=== PATIENT | female | born 1990 | race Caucasian/White ===

== ENCOUNTER → 2021-12-03 | Outpatient (CLI) | payer BC ==
[2021-12-03 15:05] VITALS: BP 131/86; PULSE 103; TEMP 98.7; BMI 37.5
--- NOTE | 2021-12-17 15:03 | P.HPBAR ---
Bariatric H&P - History & Physicial H&P Date: 12/03/21 History & Physicial: Visit/CC: new patient Patient initial contact: Initial weight: Initial weight in pounds: Height: 5 ft 1 in Initial BMI: Last weight: Current weight: 90.265 kg Current weight in pounds: 199.00 Current BMI: 37.5 [place] body weight (based on NIH guidelines): 47.627 kg Excess body weight loss: The patient is a 31 year-old F who presents for Bariatric Assessment. Patient presents today for presurgical consultation. Patient is morbidly obese. Her BMI is 38. She is interested in sleeve gastrectomy. Past Medical History Additional Past Medical History / Comment(s): "pre-diabetes" History of Any Multi-Drug Resistant Organisms: None Reported Past Surgical History: Section Past Anesthesia/Blood Transfusion Reactions: No Reported Reaction Past Psychological History: Anxiety, Depression Smoking Status: Former smoker Past Alcohol Use History: Rare Past Drug Use History: None Reported Surgical - Exam Vital Signs Temp Pulse BP 98.7 F 103 H 131/86 12/03/21 14:58 12/03/21 14:58 12/03/21 14:58 - General well developed, well nourished, no distress - Eyes PERRL - ENT normal pinna - Neck no masses - Respiratory normal expansion - Cardiovascular Rhythm: regular - Abdomen Abdomen: soft, non tender Bariatric Assessment & Plan Plan: Morbid obesity. We went over the risks and benefits of sleeve gastrectomy. Discussed with the possibility of staple line disruption, bleeding scarring. Patient will be scheduled for EGD. She'll follow-up after this is been performed. Bariatric Checklist Checklist: Plan: Checklist: EGD: 1. Hiatal hernia: 2. H. Pylori: HgbA1c: Vitamin D: Smoking: Primary care physician referral: Dr. Odonnell Psychiatry clearance: Cardiology clearance: Sleep study: Diet journal: VTE risk score: VTE risk level: Rehab needs at discharge:
== END ==
LOC: BARWHC3 14:32
PROVIDERS: ATTEND Surgery
DX: E66.01 Morbid (severe) obesity due to excess calories (principal); Z68.37 Body mass index [BMI] 37.0-37.9, adult; Z01.818 Encounter for other preprocedural examination; F41.9 Anxiety disorder, unspecified; F32.A Depression, unspecified; Z87.891 Personal history of nicotine dependence
CPT/HCPCS: 99202

== ENCOUNTER → 2021-12-13 | Outpatient (CLI) | payer BC ==
[2021-12-13 13:40] VITALS: BP 155/78; PULSE 120; TEMP 98.2; BMI 36.4
--- NOTE | 2021-12-13 14:48 | P.HPBAR ---
Bariatric H&P - History & Physicial H&P Date: 12/13/21 History & Physicial: Visit/CC: Patient initial contact: Initial weight: Initial weight in pounds: Height: 5 ft 1 in Initial BMI: Last weight: Current weight: 87.543 kg Current weight in pounds: 193.00 Current BMI: 36.4 [place] body weight (based on NIH guidelines): 47.627 kg Excess body weight loss: The patient is a 31 year-old F who presents for Bariatric Assessment. Patient is here today to discuss surgical weight loss options. Patient is interested in sleeve gastrectomy. Patient without significant comorbidities. She does admit to intermittent episodes of reflux. Takes Pepcid [id number] 3 times per week. Usually only happens if she eats later in the day. She says she had a prior upper endoscopy showing a bezoar and a small hiatal hernia. This was back in 2017. The bezoar was not removed at the time says she does have prediabetes and recent hemoglobin A1c was 6.0. No tobacco use. Surgical history includes . Review of Systems The patient denies any acute changes in vision or hearing, no dysphagia or odynophagia, no chest pain or shortness of breath, no dysuria or hematuria, no headache, no runny nose, no rectal bleeding or melena, no unexplained weight loss Past Medical History Additional Past Medical History / Comment(s): "pre-diabetes" History of Any Multi-Drug Resistant Organisms: None Reported Past Surgical History: Section Past Anesthesia/Blood Transfusion Reactions: No Reported Reaction Past Psychological History: Anxiety, Depression Smoking Status: Former smoker Past Alcohol Use History: Rare Past Drug Use History: None Reported Surgical - Exam Vital Signs Temp Pulse BP 98.2 F 120 H 155/78 12/13/21 13:29 12/13/21 13:29 12/13/21 13:29 Physical exam: General: Well-developed, well-nourished HEENT: Normocephalic, sclerae nonicteric Abdomen: Nontender, nondistended Extremities: No edema Neuro: Alert and oriented Bariatric Assessment & Plan (1) Obesity (BMI 35.0-39.9 without comorbidity) Narrative/Plan: 31-year-old female with severe obesity. Patient is interested in sleeve gastrectomy. Will require upper endoscopy to evaluate the hiatal hernia and history of previous bezoar. Surgical options of weight loss surgery including the gastric bypass and sleeve gastrectomy reviewed in detail. Surgical risks and benefits as well as expected weight loss also discussed. Patient remains interested at this time. We'll follow up after EGD. Status: Acute Bariatric Checklist Checklist: Plan: Checklist: EGD: 1. Hiatal hernia: 2. H. Pylori: HgbA1c: Vitamin D: Smoking: Primary care physician referral: Dr. Odonnell Psychiatry clearance: Cardiology clearance: Sleep study: Diet journal: VTE risk score: VTE risk level: Rehab needs at discharge:
== END ==
LOC: BARWHC3 13:16
PROVIDERS: ATTEND Surgery
DX: E66.01 Morbid (severe) obesity due to excess calories (principal); Z68.36 Body mass index [BMI] 36.0-36.9, adult; F41.9 Anxiety disorder, unspecified; F32.A Depression, unspecified; Z87.891 Personal history of nicotine dependence
CPT/HCPCS: 99211

== ENCOUNTER 2023-11-17 18:08 | Emergency (ER) | payer BC | END 2023-11-17 22:35 | disposition home or self-care (01) | LOC: EC 18:08 | CPT/HCPCS: 99282 ==

== ENCOUNTER 2024-07-22 17:32 | Emergency (ER) | payer SELFPAY ==
[2024-07-22 17:38] VITALS: RESP 18
--- NOTE | 2024-07-22 17:55 | ED ---
Abdominal Pain HPI - General Source: patient, RN notes reviewed Mode of arrival: ambulatory Limitations: no limitations - History of Present Illness MD Complaint: abdominal pain <Isabel Castillo - Last Filed: 07/22/24 19:18> <Mojgan Pandya - Last Filed: 07/22/24 22:25> - General Chief Complaint: Abdominal Pain Stated Complaint: abd pain Time Seen by Provider: 07/22/24 17:39 - History of Present Illness Initial Comments: This is a 33-year-old female who presents to the emergency department for abdominal pain. Patient reports epigastric pain starting yesterday. She has associated nausea, vomiting, and diarrhea. Yesterday her dog also head butted her in the right rib cage, causing additional pain in this area. States that the pain feels like it did when she had pancreatitis. She had this a month ago. She initially went to [facility] but ended up leaving [place] due to lack of GI availability. She went to [facility] for further management. States that they could not determine a cause of the pancreatitis and advised that it was likely genetic. She did have one mimosa this morning, but did not finish it after realizing how much pain she was in. However, states that the pain had also started before she consumed this. (Isabel Castillo) - Related Data Home Medications Medication Instructions Recorded Confirmed Dextroamphetamine/Amphetamine 15 mg PO DAILY PRN 12/03/21 12/13/21 [Adderall 15 mg Tablet] Dextroamphetamine/Amphetamine 20 mg PO DAILY 12/03/21 12/13/21 [Adderall 20 mg Tablet] Doxepin [SINEquan] 10 mg PO HS 12/03/21 12/13/21 Glucos Sul 2Kcl/MSM/Chond/C/Mn 1 each PO DAILY 12/03/21 12/13/21 [Glucosamine Chondroitin Cap] Multivitamins, Thera [Multivitamin 1 tab PO DAILY 12/03/21 12/13/21 (formulary)] Sertraline [Zoloft] 50 mg PO DAILY 12/03/21 12/13/21 Turmeric Root Extract [Turmeric] 500 mg PO DAILY 12/03/21 12/13/21 hydrOXYzine HCL [Hydroxyzine HCl] 25 mg PO Q12HR PRN 12/03/21 12/13/21 metFORMIN HCL ER [Glucophage XR] 1,000 mg PO DAILY 12/03/21 12/13/21 Allergies Allergy/AdvReac Type Severity Reaction Status Date / Time No Known Allergies Allergy Verified 07/22/24 17:38 Review of Systems ROS Other: All systems not noted in ROS Statement are negative. <Isabel Castillo - Last Filed: 07/22/24 19:18> ROS Other: All systems not noted in ROS Statement are negative. <Mojgan Pandya - Last Filed: 07/22/24 22:25> ROS Statement: Those systems with pertinent positive or pertinent negative responses have been documented in the HPI. Past Medical History Additional Past Medical History / Comment(s): Pancreatitis. "pre-diabetes" History of Any Multi-Drug Resistant Organisms: None Reported Past Surgical History: Bariatric Surgery, Section Past Anesthesia/Blood Transfusion Reactions: No Reported Reaction Past Psychological History: Anxiety, Depression Smoking Status: Former smoker Past Alcohol Use History: Rare Past Drug Use History: None Reported <Isabel Castillo - Last Filed: 07/22/24 19:18> General Exam Limitations: no limitations General appearance: alert, in no apparent distress Head exam: Present: atraumatic, normocephalic, normal inspection Respiratory exam: Present: normal lung sounds bilaterally. Absent: respiratory distress, wheezes, rales, rhonchi, stridor Cardiovascular Exam: Present: regular rate, normal rhythm GI/Abdominal exam: Present: soft, tenderness (Epigastric), normal bowel sounds. Absent: distended Neurological exam: Present: alert, oriented X3, CN II-XII intact Psychiatric exam: Present: normal affect, normal mood Skin exam: Present: warm, dry, intact, normal color. Absent: rash <Isabel Castillo - Last Filed: 07/22/24 19:18> Course Vital Signs 07/22/24 07/22/24 17:33 20:36 Temperature 97.8 F Pulse Rate 96 77 Respiratory 18 18 Rate Blood Pressure 140/101 151/107 O2 Sat by Pulse 100 100 Oximetry Medical Decision Making - Lab Data Result diagrams: 07/22/24 18:10 - Radiology Data Radiology results: report reviewed, image reviewed <Isabel Castillo - Last Filed: 07/22/24 19:18> - Lab Data Result diagrams: 07/22/24 18:10 07/22/24 18:10 <Mojgan Pandya - Last Filed: 07/22/24 22:25> - Medical Decision Making This is a 33-year-old female who presents to the emergency department for abdominal pain. Was pt. sent in by a medical professional or institution? @ -No Did you speak to anyone other than the patient for history? @ -No Did you review nursing and triage notes? @ -Yes, and I agree, it is accurate with regards to the patient's symptoms. Were old charts reviewed? @ -No Differential Diagnosis? @ -Differential Abdominal Pain Women: Appendicitis, Cholecystitis, diverticulosis, ischemic bowel, pancreatitis, hepatitis, UTI, gastroenteritis, AAA, incarcerated hernia, bowel obstruction, constipation, inflammatory bowel, hepatitis, peptic ulcer disease, splenic infar ction, perforated viscus, vulvitis, ovarian torsion, PID, kidney stone, placenta abruption, this is not meant to be an all-inclusive list EKG interpreted by me (3pts min.)? @ -Not obtained X-rays interpreted by me (1pt min.)? @ -Chest x-ray obtained, my interpretation identifies no localized consolidations or infiltrates. CT interpreted by me (1pt min.)? @ -Not obtained U/S interpreted by me (1pt. min.)? @ -Gallbladder US obtained. My interpretation identifies no cholelithiasis. What testing was considered but not performed? (CT, X-rays, U/S, labs)? Why? @ -None What meds were considered but not given? Why? @ -None Did you discuss the management of the patient with other professionals? @ -No Did you reconcile home meds? @ -No Was smoking cessation discussed for >3mins.? @ -No Was critical care preformed (if so, how long)? @ -No Were there social determinants of health that impacted care today? How? (Homelessness, low income, unemployed, alcoholism, drug addiction, transportation, low edu. Level, literacy, decrease access to med. care, long term, rehab)? @ -No Was there de-escalation of care discussed even if they declined? (Discuss DNR or withdrawal of care, Hospice)? @ -No What co-morbidities impacted this encounter? (DM, HTN, Smoking, COPD, CAD, Cancer, CVA, Hep., AIDS, mental health diagnosis, sleep apnea, morbid obesity)? @ -None Was patient admitted / discharged? @ -Laboratory studies ordered along with an ultrasound of the gallbladder and x-ray of the right rib cage given the rib injury. X-ray of the chest and right rib cage obtained revealing no acute process. Case signed out to Mojgan Pandya PA-C, at shift completion pending laboratory studies and disposition. Undiagnosed new problem with uncertain prognosis? @ -None Drug Therapy requiring intensive monitoring for toxicity (Heparin, Nitro, Insulin, Cardizem)? @ -None Were any procedures done? @ -None (Isabel Castillo) Patient signed out to me pending ultrasound and labs. Ultrasound shows increased hepatic parenchymal echogenicity suggesting steatosis. Dilated CBD measuring 8 mm in diameter without discrete sonographic evidence of an obstru cting biliary stone or other lesion. However distal CBD was not well-evaluated due to shadowing bowel gas. Lipase was 3725 amylase is 218. I spoke with soccer referee Dr. Pacheco who declines admission given that we do not have GI at this time. I spoke with fire control system installer Dr. Sorto at [facility] who declined transfer citing that patient can have an MRCP performed here and if normal does not need to be transferred I spoke with soccer referee Dr. Hernandez at [facility] where the patient was previously hospitalized, she accepts transfer. Patient is agreeable with this plan. I discussed this case with my attending Dr. Gomez (Mojgan Pandya) - Lab Data Lab Results 07/22/24 07/22/24 07/22/24 Range/Units 18:10 18:10 18:10 WBC 9.85 (4.50-10.00) 10*3/uL RBC 4.68 (4.10-5.20) 10*6/uL Hgb 15.1 H (12.0-15.0) g/dL Hct 42.6 (37.2-46.3) % MCV 91.0 (80.0-97.0) fL MCH 32.3 H (27.0-32.0) pg MCHC 35.4 (32.0-37.0) g/dL Plt Count 336 (140-440) 10*3/uL MPV 10.7 (9.5-12.2) fL Immature Gran % (Auto) 0.2 % Neutrophils % 65.0 % Lymphocytes % 22.9 % Monocytes % 9.8 % Eosinophils % 1.3 % Basophils % 0.8 % Immature Gran # 0.02 (0.00-0.04) 10*3/uL Neutrophils # 6.39 (1.80-7.70) 10*3/uL Lymphocytes # 2.26 (0.90-5.00) 10*3/uL Monocytes # 0.97 (0.20-1.00) 10*3/uL Eosinophils # 0.13 (0.04-0.35) 10*3/uL Basophils # 0.08 (0.00-0.10) 10*3/uL Sodium 135 L (137-145) mmol/L Potassium 3.9 (3.5-5.1) mmol/L Chloride 99 (98-107) mmol/L Carbon Dioxide 29 (22-30) mmol/L Anion Gap 7 mmol/L BUN 6 L (7-17) mg/dL Creatinine 0.58 (0.52-1.04) mg/dL Est GFR (CKD-EPI)AfAm >90 (>60 ml/min/1.73 sqM) Est GFR (CKD-EPI)NonAf >90 (>60 ml/min/1.73 sqM) Glucose 90 (74-99) mg/dL Plasma Lactic Acid Jeromy 1.3 (0.7-2.0) mmol/L Calcium 9.2 (8.4-10.2) mg/dL Total Bilirubin 0.4 (0.2-1.3) mg/dL AST 78 H (14-36) U/L ALT 59 H (4-34) U/L Alkaline Phosphatase 90 (38-126) U/L Total Protein 6.6 (6.3-8.2) g/dL Albumin 3.8 (3.5-5.0) g/dL Amylase 218 H (30-110) U/L Lipase 3725 H (23-300) U/L HCG, Qual Not Detected Disposition <Isabel Castillo - Last Filed: 07/22/24 19:18> Time of Disposition: 22:25 - Out of Hospital Transfer - Req. Specs Out of Hospital Transfer - Requested Specifics: Other Emergency Center ([facility]) <Mojgan Pandya - Last Filed: 07/22/24 22:25> Clinical Impression: Pancreatitis, Common bile duct dilatation Disposition: OTHER INSTITUTION NOT DEFINED Condition: Stable Referrals: Ian Odonnell DO [Primary Care Provider] - 1-2 days
[2024-07-22] MEDS: PANTOPRAZOLE 40 MG/10 ML VIAL IVP STA (18:20)
[2024-07-22] MEDS: LACTATED RINGERS 1,000 ML IV ONE (18:22)
[2024-07-22] MEDS: ONDANSETRON 4 MG/2 ML VIAL IVP STA (18:23)
[2024-07-22] MEDS: HYDROmorphone 1 MG/ML 1 ML SYRINGE IVP STA ×2 (18:24→20:46)
[2024-07-22 18:39] LABS: Basophils # (A) 0.08 10*3/uL (0.00-0.10); Basophils % (A) 0.8 %; Eosinophils # (A) 0.13 10*3/uL (0.04-0.35); Eosinophils % (A) 1.3 %; HCT 42.6 % (37.2-46.3); HGB 15.1 g/dL (12.0-15.0); Lymphocytes # (A) 2.26 10*3/uL (0.90-5.00); Lymphocytes % (A) 22.9 %; MCH 32.3 pg (27.0-32.0); MCHC 35.4 g/dL (32.0-37.0); Mean Platelet Volume 10.7 fL (9.5-12.2); Monocytes # (A) 0.97 10*3/uL (0.20-1.00); Monocytes % (A) 9.8 %; Neutrophils # (A) 6.39 10*3/uL (1.80-7.70); Platelet Count 336 10*3/uL (140-440); RBC 4.68 10*6/uL (4.10-5.20); RDW 12.4 % (11.5-14.5); WBC 9.85 10*3/uL (4.50-10.00)
--- NOTE | 2024-07-22 18:52 | XR ---
EXAMINATION TYPE: XR ribs RT w pa chest xray DATE OF EXAM: 07/22/2024 6:47 PM COMPARISON: None available CLINICAL INDICATION: Female, 33 years old with history of Right rib injury; PHH, pain TECHNIQUE: XR ribs RT w pa chest xray; Frontal and oblique views of the ribs with frontal chest radio graph. FINDINGS: The ribs have a normal appearance. No evidence of fracture. Overall, the lungs are clear. The cardiac silhouette is normal in size. The remaining osseous structures are intact. Gallbladder surgically absent. IMPRESSION: No acute osseous pathology. [facility], , 07/22/2024 6:49 PM
[2024-07-22 19:03] LABS: ALT 59 U/L (4-34); AST 78 U/L (14-36); African American GFR (CKD) >90 (>60 ml/min/1.73 sqM); Albumin 3.8 g/dL (3.5-5.0); Alkaline Phosphatase 90 U/L (38-126); Amylase 218 U/L (30-110); Anion Gap 7 mmol/L; Blood Urea Nitrogen 6 mg/dL (7-17); Calcium 9.2 mg/dL (8.4-10.2); Carbon Dioxide 29 mmol/L (22-30); Chloride 99 mmol/L (98-107); Glucose 90 mg/dL (74-99); Non-African American GFR(CKD) >90 (>60 ml/min/1.73 sqM); Potassium 3.9 mmol/L (3.5-5.1); Sodium 135 mmol/L (137-145); Total Bilirubin 0.4 mg/dL (0.2-1.3); Total Protein 6.6 g/dL (6.3-8.2)
[2024-07-22 19:05] LABS: HCG,Qualitative Serum Not Detected
--- NOTE | 2024-07-22 19:34 | US ---
EXAMINATION TYPE: US gallbladder DATE OF EXAM: 07/22/2024 COMPARISON: NONE CLINICAL INDICATION: Female, 33 years old with history of Epigastric pain; patient states epigastric pain. states had pancreatitis a month ago and it feels the same. also states nausea. hx of gastric by pass TECHNIQUE: Grayscale and color Doppler imaging of the right upper quadrant was performed. FINDINGS: EXAM MEASUREMENTS: Liver Length: 14.8 cm Gallbladder Wall: 0.2 cm CBD: 0.8 cm Right Kidney: 9.6 x 3.4 x 4.5 cm HOSPITAL INTERN NOTES: Pancreas: Obscured by bowel gas Liver: increased echogenicity Gallbladder: wnl Evidence for sonographic Friedman's sign: no CBD: wnl Right Kidney: wnl IMPRESSION: 1. Pancreas not well evaluated due to shadowing bowel gas. 2. Increased hepatic parenchymal echogenicity suggesting steatosis. 3. Dilated CBD measuring 8 mm in diameter without discrete sonographic evidence of an obstructing bi liary stone or other lesion. However, distal CBD not well evaluated due to shadowing bowel gas. Recom mend ERCP or MRCP for further evaluation as clinically warranted. 4. Increased hepatic parenchymal echogenicity suggesting steatosis. [facility], , 07/22/2024 7:32 PM
[2024-07-22 19:58] LABS: Lipase 3725 U/L (23-300)
[2024-07-22] MEDS: LACTATED RINGERS 1,000 ML IV SCH ×2 (20:42)
[2024-07-22] MEDS: METOCLOPRAMIDE 5 MG/ML 2 ML VIAL IVP STA (20:43)
[2024-07-22] MEDS ORDERED: HYDROmorphone 1 MG/ML 1 ML SYRINGE IVP PRN (22:23)
[2024-07-22] MEDS ORDERED: ONDANSETRON 4 MG/2 ML VIAL IVP PRN (22:23)
[2024-07-22] MEDS: diphenhydrAMINE 50 MG/ML 1 ML VIAL IVP STA (22:29)
[2024-07-22 23:36] VITALS: BP 147/103; PULSE 98; TEMP 98
== END 2024-07-22 23:35 | disposition other institution (70) ==
LOC: EC 17:32
DX: K85.90 Acute pancreatitis without necrosis or infection, unspecified (principal); K83.8 Other specified diseases of biliary tract; Z87.891 Personal history of nicotine dependence
CPT/HCPCS: 36415; 80053; 82150; 83605; 83690; 85025; 84703; 71101; 76705; 99285; 96374; 96375; 96376; 96361; J1200; J2765; J2405; J1171; J2470

== ENCOUNTER 2024-08-12 17:19 | Emergency (ER) | payer OTHER ==
[2024-08-12 17:46] VITALS: BP 128/98; PULSE 79; RESP 20; TEMP 98
--- NOTE | 2024-08-12 17:47 | ED ---
General Adult HPI - General Stated complaint: ETOH Time Seen by Provider: 08/12/24 17:43 Source: patient, RN notes reviewed Mode of arrival: ambulatory Limitations: no limitations - History of Present Illness Initial comments: 33-year-old female presented the ER via EMS for evaluation of altered mental status. Patient states she was dropping off a friend and sitting out in front of her friend's house when she took 125 mg ketamine which she is prescribed. She states this typically takes 15 minutes to "kick in" prior to sedative effects. Patient does not know why she is here and does not remember or why 911 was contacted. She states next thing she knows she was being pulled out of the vehicle by EMS. Patient does admit to alcohol consumption last night into [employer] she is unaware of what time last drink was. She states last night she did buy 1/5 of alcohol. She does not drink daily. Patient denies any current pain, dizziness, lightheadedness. She denies any SI or HI. No other drug or alcohol use. - Related Data Home Medications Medication Instructions Recorded Confirmed Dextroamphetamine/Amphetamine 15 mg PO DAILY PRN 12/03/21 12/13/21 [Adderall 15 mg Tablet] Dextroamphetamine/Amphetamine 20 mg PO DAILY 12/03/21 12/13/21 [Adderall 20 mg Tablet] Doxepin [SINEquan] 10 mg PO HS 12/03/21 12/13/21 Glucos Sul 2Kcl/MSM/Chond/C/Mn 1 each PO DAILY 12/03/21 12/13/21 [Glucosamine Chondroitin Cap] Multivitamins, Thera [Multivitamin 1 tab PO DAILY 12/03/21 12/13/21 (formulary)] Sertraline [Zoloft] 50 mg PO DAILY 12/03/21 12/13/21 Turmeric Root Extract [Turmeric] 500 mg PO DAILY 12/03/21 12/13/21 hydrOXYzine HCL [Hydroxyzine HCl] 25 mg PO Q12HR PRN 12/03/21 12/13/21 metFORMIN HCL ER [Glucophage XR] 1,000 mg PO DAILY 12/03/21 12/13/21 Allergies Allergy/AdvReac Type Severity Reaction Status Date / Time No Known Allergies Allergy Verified 07/22/24 17:38 Review of Systems ROS Statement: Those systems with pertinent positive or pertinent negative responses have been documented in the HPI. ROS Other: All systems not noted in ROS Statement are negative. Past Medical History Additional Past Medical History / Comment(s): Pancreatitis. "pre-diabetes" History of Any Multi-Drug Resistant Organisms: None Reported Past Surgical History: Bariatric Surgery, Section Past Anesthesia/Blood Transfusion Reactions: No Reported Reaction Past Psychological History: Anxiety, Depression Smoking Status: Former smoker Past Alcohol Use History: Rare Past Drug Use History: None Reported General Exam Limitations: no limitations General appearance: alert, in no apparent distress, appears intoxicated Eye exam: Present: normal appearance, PERRL, EOMI, nystagmus. Absent: scleral icterus, conjunctival injection, periorbital swelling Pupils: Present: normal accommodation ENT exam: Present: normal exam, normal oropharynx, mucous membranes moist Respiratory exam: Present: normal lung sounds bilaterally. Absent: respiratory distress, wheezes, rales, rhonchi, stridor Cardiovascular Exam: Present: regular rate, normal rhythm, normal heart sounds. Absent: systolic murmur, diastolic murmur, rubs, gallop, clicks GI/Abdominal exam: Present: soft, normal bowel sounds. Absent: distended, tenderness, guarding, rebound, rigid Extremities exam: Present: normal inspection, full ROM, normal capillary refill. Absent: tenderness, pedal edema, joint swelling, calf tenderness Neurological exam: Present: alert, oriented X3, CN II-XII intact Skin exam: Present: warm, dry, intact, normal color. Absent: rash Course Vital Signs 08/12/24 17:38 Temperature 98.0 F Pulse Rate 79 Respiratory 20 Rate Blood Pressure 128/98 O2 Sat by Pulse 98 Oximetry - Reevaluation(s) Reevaluation #1: 08/12/24 18:13 Patient eloped from the ER. With IV in place. Nursing staff contacted police department Medical Decision Making - Medical Decision Making Was pt. sent in by a medical professional or institution (, PA, ELECTRICAL LOGGING ENGINEER, urgent care, hospital, or intermediate...) When possible be specific @ -No Did you speak to anyone other than the patient for history (EMS, parent, family, police, friend...)? What history was obtained from this source @ -No Did you review nursing and triage notes (agree or disagree)? Why? @ -I reviewed and agree with nursing and triage notes Were old charts reviewed (outside hosp., previous admission, EMS record, old EKG, old radiological studies, urgent care reports/EKG's, intermediate records)? Report findings @ -No old charts were reviewed Differential Diagnosis (chest pain, altered mental status, abdominal pain women, abdominal pain men, vaginal bleeding, weakness, fever, dyspnea, syncope, headache, dizziness, GI bleed, back pain, seizure, CVA, palpatations, mental health, musculoskeletal)? @ -Drug intoxication, alcohol intoxication, suicidal ideations, hallucinations... This list is not meant to be all-inclusive EKG interpreted by me (3pts min.). @ -None done X-rays interpreted by me (1pt min.). @ -None done CT interpreted by me (1pt min.). @ -None done U/S interpreted by me (1pt. min.). @ -None done What testing was considered but not performed or refused? (CT, X-rays, U/S, labs)? Why? @ -None What meds were considered but not given or refused? Why? @ -None Did you discuss the management of the patient with other professionals (professionals i.e. , PA, ELECTRICAL LOGGING ENGINEER, lab, RT, psych nurse, manager social work, flagstone layer, teacher, licensed loan officer assistant, comp field case manager)? Give summary @ -No Was smoking cessation discussed for >3mins.? @ -No Was critical care preformed (if so, how long)? @ -No Were there social determinants of health that impacted care today? How? (Homelessness, low income, unemployed, alcoholism, drug addiction, transportation, low edu. Level, literacy, decrease access to med. care, senior living, rehab)? @ -No Was there de-escalation of care discussed even if they declined (Discuss DNR or withdrawal of care, Hospice)? DNR status @ -No What co-morbidities impacted this encounter? (DM, HTN, Smoking, COPD, CAD, Cancer, CVA, ARF, Chemo, Hep., AIDS, mental health diagnosis, sleep apnea, morbid obesity)? @ -None Was patient admitted / discharged? Hospital course, mention meds given and route, prescriptions, significant lab abnormalities, going to OR and other pertinent info. @ -33-year-old female presented the ER via EMS for alcohol intoxication. Vital stable upon arrival. Laboratory studies unremarkable. Urine without evidence of infection. hCG negative. UDS positive for amphetamines, marijuana. Serum alcohol 139. Patient eloped from ER prior to completion of medical treatment. Patient did leave with IV in place for which nurse contacted PD. Patient denied SI or HI. Case discussed with ED attending, Dr. Cunningham. Undiagnosed new problem with uncertain prognosis? @ -No Drug Therapy requiring intensive monitoring for toxicity (Heparin, Nitro, Insulin, Cardizem)? @ -No Were any procedures done? @ -No Diagnosis/symptom? @ -AMA Acute, or Chronic, or Acute on Chronic? @ -N/A Uncomplicated (without systemic symptoms) or Complicated (systemic symptoms)? @ -N/A Side effects of treatment? @ -No Exacerbation, Progression, or Severe Exacerbation? @ -No Poses a threat to life or bodily function? How? (Chest pain, [place], [place], pneumonia, PE, COPD, DKA, ARF, appy, cholecystitis, CVA, Diverticulitis, Homicidal, Suicidal, threat to staff... and all critical care pts) @ -No - Lab Data Result diagrams: 08/12/24 18:12 08/12/24 18:12 Lab Results 08/12/24 08/12/24 08/12/24 Range/Units 18:12 18:12 18:12 WBC 8.27 (4.50-10.00) 10*3/uL RBC 4.14 (4.10-5.20) 10*6/uL Hgb 13.0 (12.0-15.0) g/dL Hct 38.8 (37.2-46.3) % MCV 93.7 (80.0-97.0) fL MCH 31.4 (27.0-32.0) pg MCHC 33.5 (32.0-37.0) g/dL Plt Count 381 (140-440) 10*3/uL MPV 9.9 (9.5-12.2) fL Immature Gran % (Auto) 0.2 % Neutrophils % 53.3 % Lymphocytes % 39.2 % Monocytes % 4.5 % Eosinophils % 1.5 % Basophils % 1.3 % Immature Gran # 0.02 (0.00-0.04) 10*3/uL Neutrophils # 4.41 (1.80-7.70) 10*3/uL Lymphocytes # 3.24 (0.90-5.00) 10*3/uL Monocytes # 0.37 (0.20-1.00) 10*3/uL Eosinophils # 0.12 (0.04-0.35) 10*3/uL Basophils # 0.11 H (0.00-0.10) 10*3/uL Sodium (137-145) mmol/L Potassium (3.5-5.1) mmol/L Chloride (98-107) mmol/L Carbon Dioxide (22-30) mmol/L Anion Gap mmol/L BUN (7-17) mg/dL Creatinine (0.52-1.04) mg/dL Est GFR (CKD-EPI)AfAm (>60 ml/min/1.73 sqM) Est GFR (CKD-EPI)NonAf (>60 ml/min/1.73 sqM) Glucose (74-99) mg/dL Calcium (8.4-10.2) mg/dL Total Bilirubin (0.2-1.3) mg/dL AST (14-36) U/L ALT (4-34) U/L Alkaline Phosphatase (38-126) U/L Total Protein (6.3-8.2) g/dL Albumin (3.5-5.0) g/dL Urine Color Colorless Urine Appearance Clear (Clear) Urine pH 7.0 (5.0-8.0) Ur Specific [place] 1.002 (1.001-1.035) Urine Protein Negative (Negative) Urine Glucose (UA) Negative (Negative) Urine Ketones Negative (Negative) Urine Blood Negative (Negative) Urine Nitrite Negative (Negative) Urine Bilirubin Negative (Negative) Urine Urobilinogen <2.0 (<2.0) mg/dL Ur Leukocyte Esterase Negative (Negative) Urine HCG, Qual Not Detected (Not Detectd) Urine Opiates Screen Not Detected (NotDetected) Ur Oxycodone Screen Not Detected (NotDetected) Urine Methadone Screen Not Detected (NotDetected) Ur Barbiturates Screen Not Detected (NotDetected) U Tricyclic Antidepress Not Detected (NotDetected) Ur Phencyclidine Scrn Not Detected (NotDetected) Ur Amphetamines Screen Detected H (NotDetected) U Methamphetamines Scrn Not Detected (NotDetected) U Benzodiazepines Scrn Not Detected (NotDetected) Urine Cocaine Screen Not Detected (NotDetected) U Marijuana (THC) Screen Detected H (NotDetected) Serum Alcohol mg/dL 08/12/24 Range/Units 18:12 WBC (4.50-10.00) 10*3/uL RBC (4.10-5.20) 10*6/uL Hgb (12.0-15.0) g/dL Hct (37.2-46.3) % MCV (80.0-97.0) fL MCH (27.0-32.0) pg MCHC (32.0-37.0) g/dL Plt Count (140-440) 10*3/uL MPV (9.5-12.2) fL Immature Gran % (Auto) % Neutrophils % % Lymphocytes % % Monocytes % % Eosinophils % % Basophils % % Immature Gran # (0.00-0.04) 10*3/uL Neutrophils # (1.80-7.70) 10*3/uL Lymphocytes # (0.90-5.00) 10*3/uL Monocytes # (0.20-1.00) 10*3/uL Eosinophils # (0.04-0.35) 10*3/uL Basophils # (0.00-0.10) 10*3/uL Sodium 142 (137-145) mmol/L Potassium 3.9 (3.5-5.1) mmol/L Chloride 108 H (98-107) mmol/L Carbon Dioxide 26 (22-30) mmol/L Anion Gap 8 mmol/L BUN 2 L (7-17) mg/dL Creatinine 0.48 L (0.52-1.04) mg/dL Est GFR (CKD-EPI)AfAm >90 (>60 ml/min/1.73 sqM) Est GFR (CKD-EPI)NonAf >90 (>60 ml/min/1.73 sqM) Glucose 78 (74-99) mg/dL Calcium 8.6 (8.4-10.2) mg/dL Total Bilirubin 0.5 (0.2-1.3) mg/dL AST 84 H (14-36) U/L ALT 52 H (4-34) U/L Alkaline Phosphatase 74 (38-126) U/L Total Protein 6.4 (6.3-8.2) g/dL Albumin 3.4 L (3.5-5.0) g/dL Urine Color Urine Appearance (Clear) Urine pH (5.0-8.0) Ur Specific [place] (1.001-1.035) Urine Protein (Negative) Urine Glucose (UA) (Negative) Urine Ketones (Negative) Urine Blood (Negative) Urine Nitrite (Negative) Urine Bilirubin (Negative) Urine Urobilinogen (<2.0) mg/dL Ur Leukocyte Esterase (Negative) Urine HCG, Qual (Not Detectd) Urine Opiates Screen (NotDetected) Ur Oxycodone Screen (NotDetected) Urine Methadone Screen (NotDetected) Ur Barbiturates Screen (NotDetected) U Tricyclic Antidepress (NotDetected) Ur Phencyclidine Scrn (NotDetected) Ur Amphetamines Screen (NotDetected) U Methamphetamines Scrn (NotDetected) U Benzodiazepines Scrn (NotDetected) Urine Cocaine Screen (NotDetected) U Marijuana (THC) Screen (NotDetected) Serum Alcohol 139 mg/dL Disposition Clinical Impression: Left against medical advice Disposition: LEFT AGAINST MEDICAL ADVICE Condition: Undetermined Referrals: Ian Odonnell DO [Primary Care Provider] - 1-2 days Time of Disposition: 18:23
[2024-08-12] MEDS ORDERED: SODIUM CHLORIDE 0.9% 500 ML 500 ML IV ONE (17:48)
[2024-08-12] MEDS ORDERED: SODIUM CHLORIDE 0.9% 1,000 ML IV ONE (17:48)
[2024-08-12 18:19] LABS: Appearance,Urine Clear (Clear); Bilirubin,Urine Negative (Negative); Blood,Urine Negative (Negative); Color,Urine Colorless; Glucose,Urine (UA) Negative (Negative); Ketones,Urine Negative (Negative); Leukocyte Esterase,Urine Negative (Negative); Nitrite,Urine Negative (Negative); Protein,Urine Negative (Negative); Specific Gravity,Urine 1.002 (1.001-1.035); Urobilinogen,Urine <2.0 mg/dL (<2.0)
[2024-08-12 18:32] LABS: Basophils # (A) 0.11 10*3/uL (0.00-0.10); Basophils % (A) 1.3 %; Eosinophils # (A) 0.12 10*3/uL (0.04-0.35); Eosinophils % (A) 1.5 %; HCT 38.8 % (37.2-46.3); Lymphocytes # (A) 3.24 10*3/uL (0.90-5.00); Lymphocytes % (A) 39.2 %; MCH 31.4 pg (27.0-32.0); MCHC 33.5 g/dL (32.0-37.0); MCV 93.7 fL (80.0-97.0); Mean Platelet Volume 9.9 fL (9.5-12.2); Monocytes # (A) 0.37 10*3/uL (0.20-1.00); Monocytes % (A) 4.5 %; Neutrophils # (A) 4.41 10*3/uL (1.80-7.70); Neutrophils % (A) 53.3 %; Platelet Count 381 10*3/uL (140-440); RBC 4.14 10*6/uL (4.10-5.20); RDW 12.7 % (11.5-14.5); WBC 8.27 10*3/uL (4.50-10.00)
[2024-08-12 18:35] LABS: Amphetamine Screen,Urine Detected (NotDetected); Barbiturate Screen,Urine Not Detected (NotDetected); Benzodiazepines Screen,Urine Not Detected (NotDetected); Cocaine Screen,Urine Not Detected (NotDetected); Methadone Screen, Urine Not Detected (NotDetected); Opiate Screen,Urine Not Detected (NotDetected); Oxycodone Screen, Urine Not Detected (NotDetected); Phencyclidine Screen,Urine Not Detected (NotDetected); Tricyclic Antidepressant,Urine Not Detected (NotDetected); Urn Cannabinoid Scrn Detected (NotDetected)
[2024-08-12 18:47] LABS: ALT 52 U/L (4-34); African American GFR (CKD) >90 (>60 ml/min/1.73 sqM); Albumin 3.4 g/dL (3.5-5.0); Anion Gap 8 mmol/L; Blood Urea Nitrogen 2 mg/dL (7-17); Calcium 8.6 mg/dL (8.4-10.2); Carbon Dioxide 26 mmol/L (22-30); Chloride 108 mmol/L (98-107); Glucose 78 mg/dL (74-99); Non-African American GFR(CKD) >90 (>60 ml/min/1.73 sqM); Sodium 142 mmol/L (137-145); Total Bilirubin 0.5 mg/dL (0.2-1.3); Total Protein 6.4 g/dL (6.3-8.2)
[2024-08-12 19:04] LABS: AST 84 U/L (14-36); Alcohol 139 mg/dL; Alkaline Phosphatase 74 U/L (38-126); Potassium 3.9 mmol/L (3.5-5.1)
== END 2024-08-12 18:13 | disposition left against medical advice (07) ==
LOC: EC 17:19
DX: F10.129 Alcohol abuse with intoxication, unspecified (principal); R41.82 Altered mental status, unspecified; Z53.29 Procedure and treatment not carried out because of patient's decision for other reasons; Z87.891 Personal history of nicotine dependence
CPT/HCPCS: 36415; 80053; 80306; 80320; 81003; 81025; 85025; 99284